=== PATIENT | male | born 1995 | race Hispanic/Latino ===

== ENCOUNTER 2019-10-29 16:04 | Emergency (ER) | payer SELFPAY ==
[2019-10-29] MEDS ORDERED: ONDANSETRON 4 MG/2 ML VIAL ONE (16:49)
[2019-10-29] MEDS ORDERED: PANTOPRAZOLE 40 MG INJ ONE (16:49)
[2019-10-29] MEDS ORDERED: MORPHINE 2 MG/ML SYR ONE (16:49)
[2019-10-29 17:08] LABS: Barbiturates NEGATIVE (NEGATIVE); Benzodiazepines NEGATIVE (NEGATIVE); Cocaine NEGATIVE (NEGATIVE); METHAMPHETAM NEGATIVE (NEGATIVE); Methadone NEGATIVE (NEGATIVE); Opiates NEGATIVE (NEGATIVE); Phencyclidine NEGATIVE (NEGATIVE); THC Cannibis NEGATIVE (NEGATIVE)
[2019-10-29 17:16] LABS: Absolute Lymphocytes (CBC) 1.9 K/uL (0.7-4.9); Basophils % 0.9 % (0-1.3); Hematocrit 45.1 % (39.6-49.0); Lymphocytes % 20.3 % (15.3-44.8); MPV 9.2 fL (7.6-11.3); Protime INR 1.11; RBC Red Blood Cell Count 5.25 M/uL (4.33-5.43)
[2019-10-29 17:35] LABS: ALT/SGPT 21 U/L (12-78); AST/SGOT 11 U/L (15-37); Albumin 4.1 g/dL (3.4-5.0); Alkaline Phosphatase 64 U/L (45-117); BUN Blood Urea Nitrogen 10 mg/dL (7-18); Bicarbonate 28 mmol/L (21-32); Bilirubin Direct 0.1 mg/dL (0-0.2); Bilirubin Total 0.4 mg/dL (0.2-1.0); Glucose Level 111 mg/dL (74-106); Lipase 47 U/L (73-393); Magnesium 2.2 mg/dL (1.8-2.4); NT PRO-BNP 41 pg/mL (<125); Potassium 3.5 mmol/L (3.5-5.1); Protein, Total 8.2 g/dL (6.4-8.2); Sodium Level 141 mmol/L (136-145); Troponin (Emerg Dept Use Only) < 0.02 ng/mL (0.0-0.045)
[2019-10-29 17:50] LABS: Urine Blood TRACE (NEG); Urine Glucose NEGATIVE (NEG); Urine Protein NEGATIVE (NEG); Urine pH 7.5 (5.0-7.0)
[2019-10-29] MEDS ORDERED: NA CHLORIDE 0.9% 1,000 ML ONE (18:23)
[2019-10-29] MEDS ORDERED: METOPROLOL TAR 50 MG TAB ONE (18:23)
--- NOTE | 2019-10-29 18:31 | RAD REPORT ---
EXAM DESCRIPTION: CT - Angio Aorta For Dissection - 10/29/2019 6:20 pm CLINICAL HISTORY: Abdominal distention;Chest pain COMPARISON: None. TECHNIQUE: Dynamically enhanced 3 mm thick images of the chest, abdomen, and pelvis were obtained du ring administration of approximately 150mL Isovue 370 IV contrast. Sagittal and coronal reconstructio n images were generated using MIP and reviewed. Exam utilizes a protocol to evaluate entire course of the aorta. All CT scans are performed using dose optimization technique as appropriate and may include automated exposure control or mA/KV adjustment according to patient size. FINDINGS: Aorta is normal in diameter with no dissection or other acute aortic findings. Reconstruct ion images show no significant findings. Pulmonary arteries are normal as well. No cardiomegaly, pericardial thickening or pericardial effusio n. No mass or infiltrate in the lung parenchyma. No pleural thickening, pleural effusion or pneumothorax . No abnormal mediastinal or hilar mass or lymphadenopathy seen. No chest wall mass or abnormal axillar y lymphadenopathy. Patient has a moderate severity pectus excavatum deformity. Celiac, SMA and renal arteries show no suspicious findings. Inferior mesenteric artery is patent. Renae id abdominal viscera and bowel show no significant findings. No mass or abnormal lymphadenopathy. N o free air, free fluid or inflammatory stranding. No urinary bladder abnormality. IMPRESSION: Negative CT scan of the aorta. No other significant or acute findings on chest, abdomen and pelvis examination.
--- NOTE | 2019-10-29 18:41 | RAD REPORT ---
EXAM DESCRIPTION: RAD - Chest Single View - 10/29/2019 5:32 pm CLINICAL HISTORY: Cough;Abdominal distention COMPARISON: Angio Aorta For Dissection dated 10/29/2019 TECHNIQUE: AP portable chest image was obtained 10/29/2019 5:32 pm . FINDINGS: Lungs are clear. Heart and vasculature are normal. No measurable pleural effusion and no p neumothorax. No acute bony abnormality seen. No acute aortic findings suspected. IMPRESSION: No acute cardiopulmonary process.
--- NOTE | 2019-10-29 19:35 | ER ---
Nurse's Notes [facility] – [place], [place] Name: Haim Dey Age: 24 yrs Sex: Male : 1995 Arrival Date: 10/29/2019 Time: 16:07 Bed 6 Private MD: Diagnosis: Tachycardia, unspecified;Anxiety disorder, unspecified;Gastro-esophageal reflux disease;Functional dyspepsia;Pectus excavatum Presentation: 10/29 16:13 Presenting complaint: Patient states: "I've been having chest pains for a week already aj1 and my stomach has been hurting and I haven't been eating that well and everytime that I eat I feel bloated and nauseous and after I eat I feel pressure in my chest.". Transition of care: patient was not received from another setting of care. Onset of symptoms was October 2019. Risk Assessment: Do you want to hurt yourself or someone else? Patient reports no desire to harm self or others. Initial Sepsis Screen: Does the patient meet any 2 criteria? HR > 90 bpm. No. Patient's initial sepsis screen is negative. Does the patient have a suspected source of infection? No. Patient's initial sepsis screen is negative. Care prior to arrival: None. 16:13 Method Of Arrival: Ambulatory aj1 16:13 Acuity: MORA 3 aj1 Triage Assessment: 16:15 General: Appears in no apparent distress. distressed, Behavior is calm, cooperative, aj1 appropriate for age. Pain: Complains of pain in chest. Neuro: Level of Consciousness is awake, alert, obeys commands, Oriented to person, place, time, situation. Cardiovascular: Patient's skin is warm and dry. Respiratory: Airway is patent Respiratory effort is even, unlabored, Respiratory pattern is regular, symmetrical. Historical: - Allergies: 16:15 No Known Allergies; aj1 - Home Meds: 16:15 None [Active]; aj1 - PMHx: 16:15 None; aj1 - PSHx: 16:15 None; aj1 - Immunization history:: Flu vaccine is not up to date. - Coronavirus screen:: The patient has NOT traveled to [place] in the past 14 days. - Social history:: Smoking status: Patient/guardian denies using tobacco. - Family history:: not pertinent. - Ebola Screening: : Patient denies travel to an Ebola-affected area in the 21 days before illness onset. Screenin:30 Abuse screen: Denies threats or abuse. Nutritional screening: No deficits noted. em Tuberculosis screening: No symptoms or risk factors identified. Fall Risk None identified. Assessment: 16:30 General: Appears in no apparent distress. comfortable, Behavior is calm, cooperative, em Denies fever. Pain: Complains of pain in epigastric area and chest Pain radiates to chest Pain currently is 0 out of 10 on a pain scale. at worst was 8 out of 10 on a pain scale. Quality of pain is described as burning, crampy, Pain began 1 week ago Is intermittent. Neuro: Level of Consciousness is awake, alert, obeys commands, Oriented to person, place, time, situation, Appropriate for age. Cardiovascular: Capillary refill < 3 seconds Patient's skin is warm and dry. Rhythm is sinus rhythm. Respiratory: Airway is patent Respiratory effort is even, unlabored, Respiratory pattern is regular, symmetrical. GI: Reports nausea, vomiting, Patient currently denies diarrhea. : Denies burning with urination, urinary frequency. Derm: Skin is intact, is healthy with good turgor, Skin is pink, warm \\T\\ dry. Musculoskeletal: Capillary refill < 3 seconds, Range of motion: intact in all extremities. 17:30 Reassessment: Patient appears in no apparent distress at this time. Patient and/or em family updated on plan of care and expected duration. Pain level reassessed. Patient is alert, oriented x 3, equal unlabored respirations, skin warm/dry/pink. Patient states symptoms have improved. 17:57 Reassessment: pt became tachycardic with a rate of 140-150's, provider at bedside, em repeat EKG completed, pt states's, "I have white coat syndrome, I feel like my heart rate is coming down." rate has improved to 123. 18:12 Reassessment: wheeled to CT via wheelchair Patient states feeling better. Patient em states symptoms have improved. 18:45 Reassessment: returned from CT and US, reports feeling better but anxious, denies pain. em 19:05 Reassessment: Patient appears in no apparent distress at this time. Patient and/or jb4 family updated on plan of care and expected duration. Pain level reassessed. Patient is alert, oriented x 3, equal unlabored respirations, skin warm/dry/pink. Patient denies pain at this time. Patient states feeling better. 20:00 Reassessment: Patient appears in no apparent distress at this time. Patient and/or jb4 family updated on plan of care and expected duration. Pain level reassessed. Patient is alert, oriented x 3, equal unlabored respirations, skin warm/dry/pink. D/c pending lab results. 20:44 Reassessment: Patient appears in no apparent distress at this time. Patient and/or jb4 family updated on plan of care and expected duration. Pain level reassessed. Patient is alert, oriented x 3, equal unlabored respirations, skin warm/dry/pink. Provider at the bedside explaining d/c to patient. Pt verbalized understanding of d/c and follow up instructions. Ambulated out of ED with steady gait. Vital Signs: 16:15 BP 164 / 101; Pulse 110; Resp 20; Temp 97.5; Pulse Ox 100% on R/A; Weight 90.72 kg (R); aj1 Height 5 ft. 10 in. (177.80 cm) (R); Pain 8/10; 16:45 BP 131 / 78; Pulse 78; Resp 18; Pulse Ox 99% on R/A; Pain 0/10; em 17:30 BP 133 / 79; Pulse 69; Resp 18; Pulse Ox 99% on R/A; em 18:47 BP 149 / 89; Pulse 115; Resp 17; Pulse Ox 100% on R/A; Pain 0/10; em 20:00 BP 126 / 71; Pulse 60; Resp 20; Pulse Ox 100% on R/A; jb4 16:15 Body Mass Index 28.70 (90.72 kg, 177.80 cm) aj ED Course: 16:07 Patient arrived in ED. mr 16:15 Triage completed. aj1 16:15 Arm band placed on Patient placed in an exam room. aj 16:17 Jose Rincon MD is Attending Physician. [facility] 16:20 Prasda Mason, RN is Primary Nurse. em 16:32 Safety checks: Family/friend present: yes. Family/friends encouraged to stay with jp3 patient. Bed in low position. Call light in reach. Side rails up X 1. Warm blanket given. Verbal reassurance given. monitor technician on. Pulse ox on. NIBP on. 16:32 Patient maintains SpO2 saturation greater than 95% on room air. jp3 16:46 UDS Sent. jp3 16:46 Urine collected: clean catch specimen, clear, haris colored, Legal drug screen obtained jp3 per protocol. 16:55 Initial lab(s) drawn, by me, sent to lab. Inserted saline lock: 20 gauge in right em antecubital area, using aseptic technique. Blood collected. 18:20 CT completed. Patient moved back from CT. Patient taken to ultrasound. bq 18:39 Ultrasound completed. Patient tolerated well. sg3 18:48 Repeat lab(s) drawn. by me, sent to lab. jp3 19:13 TSH Sent. jp3 19:34 Jaun Mcgee MD is Referral Physician. ramiro 19:34 Harris Kirk MD is Referral Physician. ramiro 20:40 No provider procedures requiring assistance completed. IV discontinued, intact, jb4 bleeding controlled, No redness/swelling at site. Pressure dressing applied. Administered Medications: 16:57 Drug: Zofran 4 mg Route: IVP; Site: right antecubital; em 17:00 Drug: ProTONIX 40 mg Route: IVP; Site: right antecubital; em 17:02 Not Given (Patient Refused): morphine 2 mg IVP once; (PAIN>8) RASS on ADMN: Combtv4, em Very Agttd3, Agttd2, Rstlss1, AlertClm0, Drwsy-1, LtSdtn-2, ModSdtn-3, DpSdtn-4, UnArsble-5 x2 18:46 Drug: NS 0.9% 1000 ml Route: IV; Rate: 1 bolus; Site: right antecubital; em 19:30 Follow up: Response: No adverse reaction; IV Status: Completed infusion; IV Intake: jb4 1000ml 18:50 Drug: Lopressor (metoprolol TARTRATE) 50 mg Route: PO; em 19:30 Follow up: Response: No adverse reaction jb4 Intake: 19:30 IV: 1000ml; Total: 1000ml. jb4 Outcome: 19:34 Discharge ordered by . ramiro 20:40 Discharged to home ambulatory, with family. jb4 20:40 Condition: stable 20:40 Discharge instructions given to patient, family, Instructed on discharge instructions, follow up and referral plans. medication usage, Demonstrated understanding of instructions, follow-up care, medications, Prescriptions given X 3. 20:49 Patient left the ED. jb4 Signatures: Loretta Matias, PADDY RN aj1 Jose Rincon MD MD cha Rivera, Mayte mr Nell AlixPrasad Johnson RN RN Aris Nunez RN RN jb4 Raiza Butler3 Moise Dong jp3 Corrections: (The following items were deleted from the chart) 18:14 17:57 Reassessment: pt became tachycardic with a rate of 140-150's, provider at em bedside, repeat EKG completed, pt states's, "I have white coat syndrome, I feel like my heart rate is coming down." em
--- NOTE | 2019-10-29 19:36 | EDPHYS ---
Physician Documentation [facility] Name: Haim Dey Age: 24 yrs Sex: Male : 1995 Arrival Date: 10/29/2019 Time: 16:07 Bed 6 Private MD: ED Physician Jose Rincon HPI: 10/29 16:36 This 24 yrs old Male presents to ER via Ambulatory with complaints of Chest ramiro Pain, Abdominal Pain. 16:36 The patient or guardian reports chest pain that is located primarily in the epigastric ramiro area, anterior chest wall, bilaterally, diaphragm, xyphoid area, mid-sternal area, right breast and left breast. The pain does not radiate. Associated signs and symptoms: The patient has no apparent associated signs or symptoms. The chest pain is described as burning, sharp. Duration: The patient or guardian reports multiple episodes, with no pattern. Modifying factors: The symptoms are alleviated by nothing. the symptoms are aggravated by activity. Severity of pain: At its worst the pain was mild moderate in the emergency department the pain is unchanged. The patient has experienced similar episodes in the past. Historical: - Allergies: 16:15 No Known Allergies; aj1 - Home Meds: 16:15 None [Active]; aj1 - PMHx: 16:15 None; aj1 - PSHx: 16:15 None; aj1 - Immunization history:: Flu vaccine is not up to date. - Coronavirus screen:: The patient has NOT traveled to [place] in the past 14 days. - Social history:: Smoking status: Patient/guardian denies using tobacco. - Family history:: not pertinent. - Ebola Screening: : Patient denies travel to an Ebola-affected area in the 21 days before illness onset. ROS: 16:36 Constitutional: Negative for fever, chills, and weight loss, Eyes: Negative for injury, ramiro pain, redness, and discharge, ENT: Negative for injury, pain, and discharge, Neck: Negative for injury, pain, and swelling, Respiratory: Negative for shortness of breath, cough, wheezing, and pleuritic chest pain, Back: Negative for injury and pain, : Negative for injury, bleeding, discharge, and swelling, MS/Extremity: Negative for injury and deformity, Skin: Negative for injury, rash, and discoloration, Neuro: Negative for headache, weakness, numbness, tingling, and seizure, Psych: Negative for depression, anxiety, suicide ideation, homicidal ideation, and hallucinations, Allergy/Immunology: Negative for hives, rash, and allergies, Endocrine: Negative for neck swelling, polydipsia, polyuria, polyphagia, and marked weight changes, Hematologic/Lymphatic: Negative for swollen nodes, abnormal bleeding, and unusual bruising. 16:36 Cardiovascular: Positive for chest pain. 16:36 Abdomen/GI: Positive for abdominal pain, nausea and vomiting. Exam: 16:36 Constitutional: This is a well developed, well nourished patient who is awake, alert, ramiro and in no acute distress. Head/Face: Normocephalic, atraumatic. Eyes: Pupils equal round and reactive to light, extra-ocular motions intact. Lids and lashes normal. Conjunctiva and sclera are non-icteric and not injected. Cornea within normal limits. Periorbital areas with no swelling, redness, or edema. ENT: Nares patent. No nasal discharge, no septal abnormalities noted. Tympanic membranes are normal and external auditory canals are clear. Oropharynx with no redness, swelling, or masses, exudates, or evidence of obstruction, uvula midline. Mucous membranes moist. Neck: Trachea midline, no thyromegaly or masses palpated, and no cervical lymphadenopathy. Supple, full range of motion without nuchal rigidity, or vertebral point tenderness. No Meningismus. Chest/axilla: Normal chest wall appearance and motion. Nontender with no deformity. No lesions are appreciated. Cardiovascular: Regular rate and rhythm with a normal S1 and S2. No gallops, murmurs, or rubs. Normal PMI, no JVD. No pulse deficits. Respiratory: Lungs have equal breath sounds bilaterally, clear to auscultation and percussion. No rales, rhonchi or wheezes noted. No increased work of breathing, no retractions or nasal flaring. Back: No spinal tenderness. No costovertebral tenderness. Full range of motion. Male : Normal genitalia with no discharge or lesions. Skin: Warm, dry with normal turgor. Normal color with no rashes, no lesions, and no evidence of cellulitis. MS/ Extremity: Pulses equal, no cyanosis. Neurovascular intact. Full, normal range of motion. Neuro: Awake and alert, GCS 15, oriented to person, place, time, and situation. Cranial nerves II-XII grossly intact. Motor strength 5/5 in all extremities. Sensory grossly intact. Cerebellar exam normal. Normal gait. Psych: Awake, alert, with orientation to person, place and time. Behavior, mood, and affect are within normal limits. 16:36 Abdomen/GI: Inspection: abdomen appears normal, Bowel sounds: normal, in all quadrants, Palpation: mild abdominal tenderness, in the epigastric area, right upper quadrant and left upper quadrant, Liver: no appreciated palpable abnormalities, Hernia: not appreciated. Vital Signs: 16:15 BP 164 / 101; Pulse 110; Resp 20; Temp 97.5; Pulse Ox 100% on R/A; Weight 90.72 kg (R); aj1 Height 5 ft. 10 in. (177.80 cm) (R); Pain 8/10; 16:45 BP 131 / 78; Pulse 78; Resp 18; Pulse Ox 99% on R/A; Pain 0/10; em 17:30 BP 133 / 79; Pulse 69; Resp 18; Pulse Ox 99% on R/A; em 18:47 BP 149 / 89; Pulse 115; Resp 17; Pulse Ox 100% on R/A; Pain 0/10; em 20:00 BP 126 / 71; Pulse 60; Resp 20; Pulse Ox 100% on R/A; jb4 16:15 Body Mass Index 28.70 (90.72 kg, 177.80 cm) aj1 MDM: 16:17 Patient medically screened. [facility] 16:39 Data reviewed: vital signs, nurses notes, lab test result(s), radiologic studies, plain ramiro films. 10/29 16:35 Order name: Basic Metabolic Panel [facility] 10/29 16:35 Order name: CBC with Diff [facility] 10/29 16:35 Order name: LFT's [facility] 10/29 16:35 Order name: Magnesium [facility] 10/29 16:35 Order name: NT PRO-BNP [facility] 10/29 16:35 Order name: PT-INR [facility] 10/29 16:35 Order name: Troponin (emerg Dept Use Only) [facility] 10/29 16:35 Order name: Lipase [facility] 10/29 16:35 Order name: UDS [facility] 10/29 16:35 Order name: D-Dimer [facility] 10/29 16:59 Order name: Urine Dipstick--Ancillary (enter results) 10/29 17:09 Order name: Urine Drug Screen; Complete Time: 17:38 EDPA 10/29 17:32 Order name: CBC with Automated Diff; Complete Time: 17:38 EDPA 10/29 17:32 Order name: Protime (+INR); Complete Time: 17:38 EDPA 10/29 16:35 Order name: XRAY Chest (1 view) [facility] 10/29 17:32 Order name: D-Dimer; Complete Time: 17:38 EDPA 10/29 17:37 Order name: Basic Metabolic Panel; Complete Time: 17:38 EDPA 10/29 17:37 Order name: Liver (Hepatic) Function; Complete Time: 17:38 EDPA 10/29 17:37 Order name: Troponin (Emerg Dept Use Only); Complete Time: 17:38 EDPA 10/29 17:37 Order name: NT PRO-BNP; Complete Time: 17:38 EDPA 10/29 17:37 Order name: Magnesium; Complete Time: 17:38 EDPA 10/29 17:37 Order name: Lipase; Complete Time: 17:38 EDPA 10/29 17:51 Order name: Troponin (emerg Dept Use Only): NOW PLEASE [facility] 10/29 17:51 Order name: US Abdomen Limited [facility] 10/29 17:51 Order name: CT Aorta for Dissection [facility] 10/29 17:52 Order name: Urine Dipstick-Ancillary; Complete Time: 18:47 [facility] 10/29 17:58 Order name: TSH [facility] 10/29 16:35 Order name: EKG; Complete Time: 16:37 [facility] 10/29 16:35 Order name: Cardiac monitoring; Complete Time: 16:46 [facility] 10/29 16:35 Order name: EKG - Nurse/Tech; Complete Time: 16:46 [facility] 10/29 16:35 Order name: IV Saline Lock; Complete Time: 18:53 [facility] 10/29 16:35 Order name: Labs collected and sent; Complete Time: 18:53 [facility] 10/29 16:35 Order name: O2 Per Protocol; Complete Time: 16:46 [facility] 10/29 16:35 Order name: O2 Sat Monitoring; Complete Time: 16:45 [facility] 10/29 16:35 Order name: Urine Dipstick-Ancillary (obtain specimen); Complete Time: 18:04 [facility] 10/29 17:53 Order name: EKG; Complete Time: 17:54 ramiro Administered Medications: 16:57 Drug: Zofran 4 mg Route: IVP; Site: right antecubital; em 17:00 Drug: ProTONIX 40 mg Route: IVP; Site: right antecubital; em 17:02 Not Given (Patient Refused): morphine 2 mg IVP once; (PAIN>8) RASS on ADMN: Combtv4, em Very Agttd3, Agttd2, Rstlss1, AlertClm0, Drwsy-1, LtSdtn-2, ModSdtn-3, DpSdtn-4, UnArsble-5 x2 18:46 Drug: NS 0.9% 1000 ml Route: IV; Rate: 1 bolus; Site: right antecubital; em 19:30 Follow up: Response: No adverse reaction; IV Status: Completed infusion; IV Intake: jb4 1000ml 18:50 Drug: Lopressor (metoprolol TARTRATE) 50 mg Route: PO; em 19:30 Follow up: Response: No adverse reaction jb4 Disposition: 10/29/19 19:34 Discharged to Home. Impression: Tachycardia, unspecified, Anxiety disorder, unspecified, Gastro-esophageal reflux disease, Functional dyspepsia, Pectus excavatum. - Condition is Stable. - Discharge Instructions: Panic Attacks, Indigestion, Indigestion, [id number], Panic Attacks, [id number]-[id number], Sinus Tachycardia. - Prescriptions for Benadryl 25 mg Oral Capsule - take 1 capsule by ORAL route every 6 hours As needed; 30 tablet. Protonix 40 mg Oral Tablet - take 1 tablet by ORAL route once daily; 30 tablet. Toprol XL 25 mg Oral Tablet - take 1 tablet by ORAL route once daily; 20 tablet. - Medication Reconciliation Form, Thank You Letter, Antibiotic Education, Prescription Opioid Use form. - Follow up: Private Physician; When: 2 - 3 days; Reason: Recheck today's complaints, Continuance of care, Re-evaluation by your physician. Follow up: Jaun Mcgee; When: 2 - 3 days; Reason: Recheck today's complaints, Re-evaluation by your physician. Follow up: Harris Kirk; When: 2 - 3 days; Reason: Recheck today's complaints, Re-evaluation by your physician. - Problem is new. - Symptoms have improved. Signatures: Dispatcher [employer] Loretta Davidson RN RN aj1 Jose Rincon MD MD cha Munoz, Edgar, RN RN em Bryson, James, RN RN jb4 Corrections: (The following items were deleted from the chart) 16:47 16:35 Urine Test ordered. ramiro jp3 20:49 19:34 10/29/2019 19:34 Discharged to Home. Impression: Tachycardia, unspecified; jb4 Anxiety disorder, unspecified; Gastro-esophageal reflux disease; Functional dyspepsia; Pectus excavatum. Condition is Stable. Discharge Instructions: Panic Attacks, Panic Attacks, Kmlg-[id number]-Lguv, Sinus Tachycardia, Indigestion, Indigestion, [id number]. Prescriptions for Benadryl 25 mg Oral Capsule - take 1 capsule by ORAL route every 6 hours As needed; 30 tablet, Protonix 40 mg Oral Tablet - take 1 tablet by ORAL route once daily; 30 tablet, Toprol XL 25 mg Oral Tablet - take 1 tablet by ORAL route once daily; 20 tablet. and Forms are Medication Reconciliation Form, Thank You Letter, Antibiotic Education, Prescription Opioid Use. Follow up: Private Physician; When: 2 - 3 days; Reason: Recheck today's complaints, Continuance of care, Re-evaluation by your physician. Follow up: Jaun Mcgee; When: 2 - 3 days; Reason: Recheck today's complaints, Re-evaluation by your physician. Follow up: Harris Kirk; When: 2 - 3 days; Reason: Recheck today's complaints, Re-evaluation by your physician. Problem is new. Symptoms have improved. ramiro
--- NOTE | 2019-10-29 19:45 | RAD REPORT ---
EXAM DESCRIPTION: US - Abdomen Exam Limited - 10/29/2019 6:39 pm CLINICAL HISTORY: ABD PAIN COMPARISON: No comparisons FINDINGS: No gallstones, sludge or other abnormalities within the gallbladder lumen. There is no wal l thickening or pericholecystic fluid. No common duct stone or biliary tree dilatation identified. IMPRESSION: Normal gallbladder and biliary tree ultrasound.
[2019-10-29 21:17] VITALS: TEMP 97.5
[2019-10-29 21:23] VITALS: BP 126/71; O2SAT 100
--- NOTE | 2019-10-30 06:21 | EKG ---
Test Date: 2019-10-29 Test Time: 16:25:27 Harvester Operator: DEANA MEASUREMENT RESULTS: Intervals: Rate: 77 AL: 154 QRSD: 90 QT: 350 QTc: 396 [place]: P: 65 AL: 154 QRS: 87 T: 27 INTERPRETIVE STATEMENTS: Sinus rhythm with marked sinus arrhythmia Possible Left atrial enlargement Nonspecific T wave abnormality Abnormal ECG No previous ECG available for comparison Electronically Signed On 10-30-19 06:20:17 MONEY MARKET CLERK by Otto Shields
--- NOTE | 2019-10-30 06:21 | EKG ---
Test Date: 2019-10-29 Test Time: 17:57:54 Bank Compliance Officer: [place] MEASUREMENT RESULTS: Intervals: Rate: 131 CT: 112 QRSD: 84 QT: 394 QTc: 581 [place]: P: CT: 112 QRS: 75 T: 42 INTERPRETIVE STATEMENTS: Sinus tachycardia Otherwise normal ECG Compared to ECG 10/29/2019 16:25:27 Sinus rhythm no longer present Sinus arrhythmia no longer present T-wave abnormality no longer present Electronically Signed On 10-30-19 06:20:04 TRANSPORTATION MAINTENANCE WORKER by Otto Shields
== END 2019-10-29 20:49 | disposition home or self-care (01) ==
LOC: ER 16:04
DX: R00.0 Tachycardia, unspecified (principal); F41.9 Anxiety disorder, unspecified; K30 Functional dyspepsia; K21.9 Gastro-esophageal reflux disease without esophagitis; Q67.6 Pectus excavatum
CPT/HCPCS: 36415; 71045; 71275; 74175; 76705; 80048; 80076; 80307; 81003; 83690; 83735; 83880; 84443; 84484; 85025; 85379; 85610; 93005; 96361; 96374; 96375; 99285; C9113; J2270; J2405; J7030; Q9967